=== PATIENT | female | born 1950 | race Hispanic/Latino ===

== ENCOUNTER 2022-08-26 16:02 | Emergency (ER) | payer MEDICARE ==
[~2022-08-26] VITALS: Ht 154.9 cm; Wt 65.8 kg
== END 2022-08-26 17:00 | disposition home or self-care (01) ==
LOC: ER 16:06
DX: N81.3 Complete uterovaginal prolapse (principal); N18.9 Chronic kidney disease, unspecified; D64.9 Anemia, unspecified; Z79.4 Long term (current) use of insulin; Z79.899 Other long term (current) drug therapy
CPT/HCPCS: 99282

== ENCOUNTER 2022-08-31 11:49 | Inpatient (IN) | payer MEDICARE ==
[~2022-08-31] VITALS: Ht 157.5 cm; Wt 59.9 kg
[2022-08-31] MEDS ORDERED: SODIUM CHLORIDE 0.9% 250ML 250 ML IV ONE (13:45)
[2022-08-31] MEDS ORDERED: POLYETHYLENE GLYCOL 3350 17 GM PACK PO PRN (14:00)
[2022-08-31] MEDS ORDERED: ONDANSETRON HCL INJ 2MG/ML 2ML 2 MG/ML VIAL IV PRN (14:00)
[2022-08-31] MEDS ORDERED: AMLODIPINE BESYL5 MG PO (14:03)
[2022-08-31] MEDS ORDERED: LISINOPRIL10 MG PO (14:03)
[2022-08-31] MEDS ORDERED: METHIMAZOLE5 MG PO (14:03)
[2022-08-31] MEDS ORDERED: PROPRANOLOL HCL10 MG PO (14:03)
[2022-08-31] MEDS ORDERED: TRESIBA FL100 UNIT/1 SQ (14:03)
[2022-08-31 14:04] VITALS: BP 170/68
[2022-08-31 14:45] LABS: HEMATOCRIT 20.9 % (34.2-44.1); HEMOGLOBIN 6.1 g/dL (12.0-16.0)
[2022-08-31] MEDS: FAMOTIDINE 20 MG/2 ML VIAL IV SCH (16:04)
[2022-08-31] MEDS: DOCUSATE SODIUM 100 MG CAP PO SCH (16:04)
[2022-08-31] MEDS: METHIMAZOLE 5 MG TAB PO SCH (16:05)
[2022-08-31 16:07] VITALS: BP 163/69
[2022-08-31 17:25] LABS: ANION GAP 16.1 mmol/L (8-16); CREATININE, SERUM 3.29 mg/dL (0.57-1.11); POTASSIUM 4.1 mmol/L (3.5-5.1)
[2022-08-31 17:32] LABS: CALCIUM 6.7 mg/dL (8.4-10.2)
[2022-08-31 21:00] VITALS: BP 163/69
[2022-08-31] MEDS: NON-FORMULARY MEDICATION (Insulin Degludec (Tresiba Flextouch U-100) 15 UNITS) SQ SCH (21:00)
[2022-08-31 21:36] VITALS: BP 168/77
[2022-08-31] MEDS ORDERED: DEXTROSE 50% SYRINGE 50 ML IV PRN (22:45)
[2022-08-31] MEDS: INSULIN REGULAR, HUMAN 100 UNIT/1 ML SQ SCH (23:16)
[2022-08-31 23:28] LABS: FERRITIN 93.31 ng/mL (4.63-204.00)
[2022-08-31] MEDS ORDERED: SODIUM CHLORIDE 0.9% 250ML 250 ML ONE (23:50)
[2022-09-01] VITALS (8 sets, daily range): BP systolic 134–167; BP diastolic 60–71
[2022-09-01 00:27] LABS: CLARITY,URINE CLOUDY (CLEAR); COLOR,URINE YELLOW (YELLOW); KETONES,URINE NEGATIVE (NEGATIVE); LEUKOCYTE ESTERASE ,URINE SMALL (NEGATIVE); NITRITE,URINE NEGATIVE (NEGATIVE); PROTEIN,URINE DIPSTICK >=300 (NEGATIVE); URINE UROBILINOGEN 0.2 mg/dL (0.2 - 1)
[2022-09-01 00:34] LABS: BACTERIA,URINE FEW /HPF; EPITHELIAL CELLS,URINE FEW /LPF; WBC,URINE (MAN) >50 /HPF (0-5)
[2022-09-01 00:58] LABS: CREATININE,URINE RANDOM 20.56 mg/dL (47-110)
[2022-09-01] MEDS ORDERED: CYANOCOBALAMIN INJ 1,000 MCG/ML VIAL IM ONE (02:00)
[2022-09-01] MEDS: HYDRALAZINE HCL 20 MG/ML VIAL IV PRN (03:47)
[2022-09-01] MEDS ORDERED: Morphine 2mg Syringe 2 MG/ML SYR IV PRN (04:30)
[2022-09-01] MEDS: ACETAMINOPHEN 325 MG TAB PO PRN ×3 (04:33→21:36)
[2022-09-01 05:57] LABS: BASOPHILS # (AUTO) 0.1 (0.0-0.1); BASOPHILS % 0.4 % (0.0-1.0); EOSINOPHILS # (AUTO) 0.2 (0.0-0.4); EOSINOPHILS % 1.4 % (0.0-6.0); HEMATOCRIT 26.2 % (34.2-44.1); HEMOGLOBIN 8.2 g/dL (12.0-16.0); LYMPHOCYTES # (AUTO) 1.8 (1.0-3.2); MEAN CORPUSCULAR HEMOGLOBIN 27.2 pg (28-32); MEAN CORPUSCULAR HGB CONC 31.3 g/dL (31-35); MEAN CORPUSCULAR VOLUME 86.8 fL (81-99); MONOCYTES # (AUTO) 1.1 (0.2-0.8); MONOCYTES % 7.8 % (4.4-11.3); NEUTROPHILS # (AUTO) 10.6 (2.1-6.9); NEUTROPHILS % 76.7 % (38.7-80.0); PLATELET COUNT 296 x10e3/uL (140-360); RED BLOOD COUNT 3.02 x10e6/uL (3.6-5.1); RED CELL DISTRIBUTION WIDTH 14.6 % (11.7-14.4)
[2022-09-01 06:31] LABS: ALBUMIN/GLOBULIN RATIO 0.4 (0.8-2.0); ANION GAP 15.3 mmol/L (8-16); CHOL/HDL RATIO 2.8 (3.0-3.6); CREATININE, SERUM 3.33 mg/dL (0.57-1.11); MAGNESIUM 1.4 MG/DL (1.3-2.1); PHOSPHORUS 3.7 MG/DL (2.3-4.7); POTASSIUM 4.3 mmol/L (3.5-5.1)
[2022-09-01 06:32] LABS: CALCIUM 6.4 mg/dL (8.4-10.2)
[2022-09-01 06:44] LABS: THYROID STIMULATING HORMONE 0.006 uIU/mL (0.350-4.940)
[2022-09-01] MEDS: INSULIN REGULAR, HUMAN 100 UNIT/1 ML SQ SCH ×4 (07:30→21:00)
[2022-09-01] MEDS ORDERED: CALCIUM CARBONATE 500 MG CHEWABLE TABS PO SCH (09:00)
[2022-09-01] MEDS: CYANOCOBALAMIN INJ 1,000 MCG/ML VIAL IM SCH (09:56)
[2022-09-01] MEDS: IRON SUCROSE 100 MG in SODIUM CHLORIDE 0.9% 100 ML IV SCH (09:56)
[2022-09-01] MEDS: FAMOTIDINE 20 MG/2 ML VIAL IV SCH ×2 (09:56→17:08)
[2022-09-01] MEDS: SODIUM BICARBONATE 650 MG TAB PO SCH ×2 (09:57→17:08)
[2022-09-01] MEDS: METHIMAZOLE 5 MG TAB PO SCH ×2 (09:58→17:12)
[2022-09-01] MEDS: AMLODIPINE BESYLATE 5 MG TAB PO SCH (09:58)
[2022-09-01] MEDS: DOCUSATE SODIUM 100 MG CAP PO SCH ×2 (09:59→17:12)
[2022-09-01] MEDS ORDERED: MAGNESIUM SULFATE 2GM/50ML 50 ML IV ONE ×2 (16:45→20:00)
[2022-09-01] MEDS: CALCIUM CARBONATE 500 MG CHEWABLE TABS PO SCH ×2 (17:00→21:35)
[2022-09-01] MEDS: SODIUM CHLORIDE 0.9% 1000ML 1,000 ML IV SCH (17:07)
[2022-09-01 17:09] LABS: ABG PCO2 31 mmHg (35-45); ABG PH 7.41 (7.35-7.45); ABG PO2 78 mmHg (80-105); ABG TCO2 21
[2022-09-01 17:10] LABS: ABG HCO3 20 mmol/L (22-26)
[2022-09-01] MEDS: NON-FORMULARY MEDICATION (Insulin Degludec (Tresiba Flextouch U-100) 15 UNITS) SQ SCH (21:00)
[2022-09-02] VITALS (8 sets, daily range): BP systolic 146–170; BP diastolic 64–77
[2022-09-02] MEDS: HYDRALAZINE HCL 20 MG/ML VIAL IV PRN ×2 (05:20→20:30)
[2022-09-02 06:24] LABS: ANION GAP 16.1 mmol/L (8-16); CREATININE, SERUM 4.02 mg/dL (0.57-1.11); MAGNESIUM 2.7 MG/DL (1.3-2.1); POTASSIUM 4.1 mmol/L (3.5-5.1)
[2022-09-02 06:35] LABS: CALCIUM 6.9 mg/dL (8.4-10.2)
[2022-09-02] MEDS: INSULIN REGULAR, HUMAN 100 UNIT/1 ML SQ SCH ×4 (09:04→20:33)
[2022-09-02] MEDS: IRON SUCROSE 100 MG in SODIUM CHLORIDE 0.9% 100 ML IV SCH (09:23)
[2022-09-02] MEDS: METHIMAZOLE 5 MG TAB PO SCH ×2 (09:25→17:00)
[2022-09-02] MEDS: SODIUM BICARBONATE 650 MG TAB PO SCH ×2 (09:26→17:00)
[2022-09-02] MEDS: CALCIUM CARBONATE 500 MG CHEWABLE TABS PO SCH ×3 (09:26→20:30)
[2022-09-02] MEDS: DOCUSATE SODIUM 100 MG CAP PO SCH ×2 (09:26→17:00)
[2022-09-02] MEDS: FAMOTIDINE 20 MG/2 ML VIAL IV SCH ×2 (09:26→17:00)
[2022-09-02] MEDS: AMLODIPINE BESYLATE 5 MG TAB PO SCH (09:26)
[2022-09-02] MEDS: CYANOCOBALAMIN INJ 1,000 MCG/ML VIAL IM SCH (09:26)
[2022-09-02] MEDS ORDERED: MIDAZOLAM HCL 2 MG/2 ML VIAL ONE (13:32)
[2022-09-02] MEDS: SODIUM CHLORIDE 0.9% 1000ML 1,000 ML IV SCH (18:55)
[2022-09-02] MEDS: NON-FORMULARY MEDICATION (Insulin Degludec (Tresiba Flextouch U-100) 15 UNITS) SQ SCH (20:33)
[2022-09-03] VITALS (7 sets, daily range): BP systolic 139–171; BP diastolic 60–80
[2022-09-03] MEDS: SODIUM CHLORIDE 0.9% 1000ML 1,000 ML IV SCH ×3 (03:27→18:36)
[2022-09-03 07:22] LABS: CALCIUM 7.3 mg/dL (8.4-10.2); CREATININE, SERUM 3.89 mg/dL (0.57-1.11)
[2022-09-03] MEDS: INSULIN REGULAR, HUMAN 100 UNIT/1 ML SQ SCH ×4 (07:30→21:00)
[2022-09-03] MEDS: IRON SUCROSE 100 MG in SODIUM CHLORIDE 0.9% 100 ML IV SCH (09:48)
[2022-09-03] MEDS: AMLODIPINE BESYLATE 5 MG TAB PO SCH (09:49)
[2022-09-03] MEDS: METHIMAZOLE 5 MG TAB PO SCH ×2 (09:49→17:22)
[2022-09-03] MEDS: CALCIUM CARBONATE 500 MG CHEWABLE TABS PO SCH ×3 (09:49→21:04)
[2022-09-03] MEDS: DOCUSATE SODIUM 100 MG CAP PO SCH ×2 (09:49→17:22)
[2022-09-03] MEDS: CYANOCOBALAMIN INJ 1,000 MCG/ML VIAL IM SCH (09:50)
[2022-09-03] MEDS: SODIUM BICARBONATE 650 MG TAB PO SCH ×2 (09:50→17:21)
[2022-09-03] MEDS: FAMOTIDINE 20 MG/2 ML VIAL IV SCH ×2 (09:50→17:21)
[2022-09-03] MEDS: NON-FORMULARY MEDICATION (Insulin Degludec (Tresiba Flextouch U-100) 15 UNITS) SQ SCH (21:00)
[2022-09-03] MEDS: HYDRALAZINE HCL 20 MG/ML VIAL IV PRN (21:06)
[2022-09-04] VITALS (7 sets, daily range): BP systolic 142–152; BP diastolic 57–67
[2022-09-04] MEDS: HYDRALAZINE HCL 20 MG/ML VIAL IV PRN (05:41)
[2022-09-04 05:42] LABS: BASOPHILS # (AUTO) 0.1 (0.0-0.1); BASOPHILS % 0.4 % (0.0-1.0); EOSINOPHILS # (AUTO) 0.2 (0.0-0.4); EOSINOPHILS % 1.3 % (0.0-6.0); HEMATOCRIT 27.3 % (34.2-44.1); HEMOGLOBIN 8.4 g/dL (12.0-16.0); LYMPHOCYTES # (AUTO) 2.3 (1.0-3.2); LYMPHOCYTES % 16.3 % (18.0-39.1); MEAN CORPUSCULAR HEMOGLOBIN 27.1 pg (28-32); MEAN CORPUSCULAR HGB CONC 30.8 g/dL (31-35); MEAN CORPUSCULAR VOLUME 88.1 fL (81-99); MONOCYTES # (AUTO) 1.2 (0.2-0.8); MONOCYTES % 8.4 % (4.4-11.3); NEUTROPHILS % 72.5 % (38.7-80.0); PLATELET COUNT 338 x10e3/uL (140-360); RED CELL DISTRIBUTION WIDTH 15.2 % (11.7-14.4)
[2022-09-04] MEDS: SODIUM CHLORIDE 0.9% 1000ML 1,000 ML IV SCH ×2 (05:49→21:17)
[2022-09-04 06:11] LABS: ANION GAP 14.8 mmol/L (8-16); CALCIUM 7.4 mg/dL (8.4-10.2); CREATININE, SERUM 3.91 mg/dL (0.57-1.11); POTASSIUM 3.8 mmol/L (3.5-5.1)
[2022-09-04] MEDS: INSULIN REGULAR, HUMAN 100 UNIT/1 ML SQ SCH ×4 (07:30→21:00)
[2022-09-04] MEDS: IRON SUCROSE 100 MG in SODIUM CHLORIDE 0.9% 100 ML IV SCH (09:32)
[2022-09-04] MEDS: CALCIUM CARBONATE 500 MG CHEWABLE TABS PO SCH ×3 (09:32→21:18)
[2022-09-04] MEDS: AMLODIPINE BESYLATE 5 MG TAB PO SCH (09:32)
[2022-09-04] MEDS: SODIUM BICARBONATE 650 MG TAB PO SCH ×2 (09:32→16:57)
[2022-09-04] MEDS: FAMOTIDINE 20 MG/2 ML VIAL IV SCH ×2 (09:33→16:57)
[2022-09-04] MEDS: METHIMAZOLE 5 MG TAB PO SCH ×2 (09:33→16:56)
[2022-09-04] MEDS: DOCUSATE SODIUM 100 MG CAP PO SCH ×2 (09:33→16:56)
[2022-09-04] MEDS: CYANOCOBALAMIN INJ 1,000 MCG/ML VIAL IM SCH (09:33)
[2022-09-04] MEDS ORDERED: AMPICILLIN TRIHYDRATE 500MG CAPSULE PO SCH (14:00)
[2022-09-04] MEDS: AMPICILLIN TRIHYDRATE 500MG CAPSULE PO SCH ×2 (14:06→21:19)
[2022-09-04] MEDS: NON-FORMULARY MEDICATION (Insulin Degludec (Tresiba Flextouch U-100) 15 UNITS) SQ SCH (21:00)
[2022-09-05] VITALS (7 sets, daily range): BP systolic 149–171; BP diastolic 67–82
[2022-09-05] MEDS: AMPICILLIN TRIHYDRATE 500MG CAPSULE PO SCH ×3 (05:06→20:55)
[2022-09-05 05:28] LABS: BASOPHILS # (AUTO) 0.1 (0.0-0.1); BASOPHILS % 0.5 % (0.0-1.0); EOSINOPHILS # (AUTO) 0.1 (0.0-0.4); EOSINOPHILS % 0.4 % (0.0-6.0); HEMATOCRIT 25.7 % (34.2-44.1); HEMOGLOBIN 8.1 g/dL (12.0-16.0); LYMPHOCYTES # (AUTO) 2.7 (1.0-3.2); LYMPHOCYTES % 19.6 % (18.0-39.1); MEAN CORPUSCULAR HEMOGLOBIN 27.6 pg (28-32); MEAN CORPUSCULAR HGB CONC 31.5 g/dL (31-35); MEAN CORPUSCULAR VOLUME 87.4 fL (81-99); MONOCYTES # (AUTO) 1.1 (0.2-0.8); NEUTROPHILS # (AUTO) 9.6 (2.1-6.9); NEUTROPHILS % 70.7 % (38.7-80.0); PLATELET COUNT 326 x10e3/uL (140-360); RED BLOOD COUNT 2.94 x10e6/uL (3.6-5.1); RED CELL DISTRIBUTION WIDTH 15.3 % (11.7-14.4)
[2022-09-05 06:10] LABS: ANION GAP 12.4 mmol/L (8-16); CALCIUM 7.1 mg/dL (8.4-10.2); CREATININE, SERUM 3.59 mg/dL (0.57-1.11); POTASSIUM 3.4 mmol/L (3.5-5.1)
[2022-09-05] MEDS: INSULIN REGULAR, HUMAN 100 UNIT/1 ML SQ SCH ×4 (07:30→20:55)
[2022-09-05] MEDS: FAMOTIDINE 20 MG/2 ML VIAL IV SCH ×2 (09:35→16:37)
[2022-09-05] MEDS: SODIUM CHLORIDE 0.9% 1000ML 1,000 ML IV SCH ×2 (09:35→23:15)
[2022-09-05] MEDS: DOCUSATE SODIUM 100 MG CAP PO SCH ×2 (09:35→16:36)
[2022-09-05] MEDS: SODIUM BICARBONATE 650 MG TAB PO SCH ×2 (09:36→16:37)
[2022-09-05] MEDS: AMLODIPINE BESYLATE 5 MG TAB PO SCH (09:36)
[2022-09-05] MEDS: CALCIUM CARBONATE 500 MG CHEWABLE TABS PO SCH ×3 (09:36→20:55)
[2022-09-05] MEDS: METHIMAZOLE 5 MG TAB PO SCH ×2 (09:36→16:36)
[2022-09-05] MEDS: IRON SUCROSE 100 MG in SODIUM CHLORIDE 0.9% 100 ML IV SCH (09:38)
[2022-09-05] MEDS: CYANOCOBALAMIN INJ 1,000 MCG/ML VIAL IM SCH (09:46)
[2022-09-05] MEDS ORDERED: ONDANSETRON HCL 4 MG ORAL DISINTEGRATING TAB PO PRN (10:45)
[2022-09-05] MEDS ORDERED: POTASSIUM CHLORIDE 20 MEQ TAB CR PO ONE (19:15)
[2022-09-05] MEDS: NON-FORMULARY MEDICATION (Insulin Degludec (Tresiba Flextouch U-100) 15 UNITS) SQ SCH (20:55)
[2022-09-06] VITALS (8 sets, daily range): BP systolic 152–167; BP diastolic 61–76
[2022-09-06 05:56] LABS: ANION GAP 11.8 mmol/L (8-16); CREATININE, SERUM 3.32 mg/dL (0.57-1.11); POTASSIUM 3.8 mmol/L (3.5-5.1)
[2022-09-06] MEDS: AMPICILLIN TRIHYDRATE 500MG CAPSULE PO SCH ×3 (06:14→21:18)
[2022-09-06] MEDS: INSULIN REGULAR, HUMAN 100 UNIT/1 ML SQ SCH ×4 (07:30→21:00)
[2022-09-06] MEDS: AMLODIPINE BESYLATE 5 MG TAB PO SCH (10:03)
[2022-09-06] MEDS: METHIMAZOLE 5 MG TAB PO SCH ×2 (10:03→16:26)
[2022-09-06] MEDS: DOCUSATE SODIUM 100 MG CAP PO SCH ×2 (10:03→16:26)
[2022-09-06] MEDS: CYANOCOBALAMIN INJ 1,000 MCG/ML VIAL IM SCH (10:04)
[2022-09-06] MEDS: CALCIUM CARBONATE 500 MG CHEWABLE TABS PO SCH ×3 (10:04→21:19)
[2022-09-06] MEDS: FAMOTIDINE 20 MG/2 ML VIAL IV SCH ×2 (10:04→16:26)
[2022-09-06] MEDS: SODIUM CHLORIDE 0.9% 1000ML 1,000 ML IV SCH (11:47)
[2022-09-06] MEDS: NON-FORMULARY MEDICATION (Insulin Degludec (Tresiba Flextouch U-100) 15 UNITS) SQ SCH (21:00)
[2022-09-07 00:40] VITALS: BP 169/75
[2022-09-07] MEDS: SODIUM CHLORIDE 0.9% 1000ML 1,000 ML IV SCH (04:50)
[2022-09-07 05:00] VITALS: BP 174/75
[2022-09-07 06:01] LABS: BASOPHILS # (AUTO) 0.1 (0.0-0.1); BASOPHILS % 0.6 % (0.0-1.0); EOSINOPHILS # (AUTO) 0.3 (0.0-0.4); EOSINOPHILS % 2.4 % (0.0-6.0); HEMATOCRIT 26.3 % (34.2-44.1); HEMOGLOBIN 8.1 g/dL (12.0-16.0); LYMPHOCYTES # (AUTO) 2.6 (1.0-3.2); LYMPHOCYTES % 23.6 % (18.0-39.1); MEAN CORPUSCULAR HEMOGLOBIN 27.2 pg (28-32); MEAN CORPUSCULAR HGB CONC 30.8 g/dL (31-35); MEAN CORPUSCULAR VOLUME 88.3 fL (81-99); MONOCYTES # (AUTO) 1.1 (0.2-0.8); NEUTROPHILS # (AUTO) 6.9 (2.1-6.9); NEUTROPHILS % 62.5 % (38.7-80.0); PLATELET COUNT 329 x10e3/uL (140-360); RED BLOOD COUNT 2.98 x10e6/uL (3.6-5.1); RED CELL DISTRIBUTION WIDTH 15.8 % (11.7-14.4)
[2022-09-07] MEDS: AMPICILLIN TRIHYDRATE 500MG CAPSULE PO SCH ×2 (06:09→15:16)
[2022-09-07 06:22] LABS: ANION GAP 13.6 mmol/L (8-16); CALCIUM 7.4 mg/dL (8.4-10.2); CREATININE, SERUM 3.25 mg/dL (0.57-1.11); POTASSIUM 3.6 mmol/L (3.5-5.1)
[2022-09-07] MEDS: INSULIN REGULAR, HUMAN 100 UNIT/1 ML SQ SCH ×2 (07:30→11:30)
[2022-09-07 08:00] VITALS: BP 174/75
[2022-09-07] MEDS ORDERED: IRON-VITAMIN-MINERAL CAPSULE PO SCH (09:00)
[2022-09-07 09:10] VITALS: BP 159/57
[2022-09-07] MEDS: AMLODIPINE BESYLATE 5 MG TAB PO SCH (09:28)
[2022-09-07] MEDS: METHIMAZOLE 5 MG TAB PO SCH (09:28)
[2022-09-07] MEDS: CALCIUM CARBONATE 500 MG CHEWABLE TABS PO SCH ×2 (09:28→15:16)
[2022-09-07] MEDS: FAMOTIDINE 20 MG/2 ML VIAL IV SCH (09:28)
[2022-09-07] MEDS: DOCUSATE SODIUM 100 MG CAP PO SCH (09:29)
[2022-09-07] MEDS: CYANOCOBALAMIN INJ 1,000 MCG/ML VIAL IM SCH (09:29)
[2022-09-07 12:26] VITALS: BP 177/88
[2022-09-07] MEDS ORDERED: Docusate Sodium PO (13:07)
[2022-09-07] MEDS ORDERED: FAMOTIDINE20 MG PO (13:24)
[2022-09-07] MEDS ORDERED: FEROCON CAPSUL1 EACH PO (13:42)
[2022-09-07] MEDS ORDERED: ONDANSETRON ODT4 MG PO (13:42)
[2022-09-07] MEDS ORDERED: MIRALAX17 GM PO (13:42)
[2022-09-07] MEDS ORDERED: AMPICILLIN TRI500 MG PO (13:42)
[2022-09-07] MEDS ORDERED: FAMOTIDINE 20 MG TAB PO SCH (16:30)
== END 2022-09-07 15:30 | disposition home or self-care (01) | DRG 377 ==
LOC: MED/SURG2 12:36 → OBSVTOIN 13:51
PROVIDERS: ADMIT Internal Medicine; ATTEND Internal Medicine
PROC: 30233N1 Transfusion of Nonautologous Red Blood Cells into Peripheral Vein, Percutaneous Approach (ICD-10-PCS; 2022-09-01)
PROC: 0DB78ZX Excision of Stomach, Pylorus, Via Natural or Artificial Opening Endoscopic, Diagnostic (ICD-10-PCS; 2022-09-02)
PROC: 0DB68ZX Excision of Stomach, Via Natural or Artificial Opening Endoscopic, Diagnostic (ICD-10-PCS; principal; 2022-09-02 17:48)
DX: K29.01 Acute gastritis with bleeding (principal); E05.91 Thyrotoxicosis, unspecified with thyrotoxic crisis or storm; N17.9 Acute kidney failure, unspecified; N13.8 Other obstructive and reflux uropathy; E87.4 Mixed disorder of acid-base balance; N18.4 Chronic kidney disease, stage 4 (severe); D50.9 Iron deficiency anemia, unspecified; N81.3 Complete uterovaginal prolapse; E11.22 Type 2 diabetes mellitus with diabetic chronic kidney disease; I12.9 Hypertensive chronic kidney disease with stage 1 through stage 4 chronic kidney disease, or unspecified chronic kidney disease; Z79.4 Long term (current) use of insulin; K44.9 Diaphragmatic hernia without obstruction or gangrene; Z66 Do not resuscitate; E11.69 Type 2 diabetes mellitus with other specified complication; E78.5 Hyperlipidemia, unspecified; D50.0 Iron deficiency anemia secondary to blood loss (chronic); K25.9 Gastric ulcer, unspecified as acute or chronic, without hemorrhage or perforation; Z20.822 Contact with and (suspected) exposure to COVID-19; E87.6 Hypokalemia
CPT/HCPCS: 36415; 36600; 43239; 76770; 80048; 80053; 80061; 81001; 82550; 82570; 82607; 82728; 82746; 82805; 82948; 83036; 83540; 83735; 84100; 84156; 84300; 84443; 84466; 84550; 85014; 85018; 85025; 85045; 86850; 86900; 86920; 87086; 88304; 88305; 88312; 88342; 96361; 96372; 99252; J1756; J2250; J2405; J3420; J3475; J7030; J7050; J7799; P9016

== ENCOUNTER 2022-11-09 15:10 | Inpatient (IN) | payer MEDICARE ==
[~2022-11-09] VITALS: Ht 154.9 cm; Wt 54.0 kg
[~2022-11-09 15:10] MED LIST: AMLODIPINE BESYL5 MG PO; AMPICILLIN TRI500 MG PO; Docusate Sodium PO; FAMOTIDINE20 MG PO; FEROCON CAPSUL1 EACH PO; LISINOPRIL10 MG PO; METHIMAZOLE5 MG PO; MIRALAX17 GM PO; ONDANSETRON ODT4 MG PO; PROPRANOLOL HCL10 MG PO; TRESIBA FL100 UNIT/1 SQ
[2022-11-09] MEDS ORDERED: ONDANSETRON HCL INJ 2MG/ML 2ML 2 MG/ML VIAL IV PRN (16:30)
[2022-11-09 17:06] LABS: BASOPHILS # (AUTO) 0.1 (0.0-0.1); BASOPHILS % 0.7 % (0.0-1.0); EOSINOPHILS # (AUTO) 0.3 (0.0-0.4); EOSINOPHILS % 2.5 % (0.0-6.0); HEMATOCRIT 30.9 % (34.2-44.1); HEMOGLOBIN 9.8 g/dL (12.0-16.0); LYMPHOCYTES # (AUTO) 1.7 (1.0-3.2); MEAN CORPUSCULAR HEMOGLOBIN 29.7 pg (28-32); MEAN CORPUSCULAR HGB CONC 31.7 g/dL (31-35); MEAN CORPUSCULAR VOLUME 93.6 fL (81-99); MONOCYTES # (AUTO) 0.8 (0.2-0.8); MONOCYTES % 7.7 % (4.4-11.3); NEUTROPHILS # (AUTO) 7.5 (2.1-6.9); NEUTROPHILS % 72.8 % (38.7-80.0); PLATELET COUNT 281 x10e3/uL (140-360)
[2022-11-09 17:24] LABS: ALANINE AMINOTRANSFERASE 12 IU/L (0-55); ALBUMIN/GLOBULIN RATIO 0.5 (0.8-2.0); ALKALINE PHOSPHATASE 281 IU/L (40-150); ANION GAP 19.4 mmol/L (8-16); BLOOD UREA NITROGEN 56 mg/dL (7-26); BUN/CREATININE RATIO 13 (6-25); CARBON DIOXIDE 15 mmol/L (22-29); CHLORIDE 108 mmol/L (98-107); CREATININE, SERUM 4.35 mg/dL (0.57-1.11); GLUCOSE 157 mg/dL (74-118); SODIUM 137 mmol/L (136-145)
[2022-11-09 17:26] LABS: POTASSIUM 5.4 mmol/L (3.5-5.1)
[2022-11-09 17:27] LABS: CALCIUM 6.3 mg/dL (8.4-10.2)
[2022-11-09] MEDS ORDERED: CALCIUM GLUC 1 G/50 ML NACL 50 ML IV ONE (17:45)
[2022-11-09] MEDS ORDERED: SODIUM CHLORIDE 0.9% 1000ML 1,000 ML IV SCH (18:00)
[2022-11-09] MEDS ORDERED: SOD POLYSTYRENE SULFONATE SUSP 15 GM/60 ML BTL PO ONE (18:00)
[2022-11-09 19:33] LABS: CLARITY,URINE CLEAR (CLEAR); COLOR,URINE YELLOW (YELLOW); KETONES,URINE NEGATIVE (NEGATIVE); LEUKOCYTE ESTERASE ,URINE NEGATIVE (NEGATIVE); NITRITE,URINE NEGATIVE (NEGATIVE); PROTEIN,URINE DIPSTICK >=300 (NEGATIVE); URINE UROBILINOGEN 0.2 mg/dL (0.2 - 1)
[2022-11-09 19:43] LABS: BACTERIA,URINE MODERATE /HPF; EPITHELIAL CELLS,URINE FEW /LPF; RBC,URINE 0-5 /HPF (0-5)
[2022-11-09 20:10] VITALS: BP 170/78; PULSE 80; RESP 20; TEMP 98.6; O2SAT 100
[2022-11-09 20:15] VITALS: BP 170/78; PULSE 80; RESP 20; TEMP 98.6; O2SAT 100
[2022-11-09 20:20] VITALS: BP 170/78; PULSE 80; RESP 20; TEMP 98.6; O2SAT 100
[2022-11-09] MEDS ORDERED: FUROSEMIDE40 MG PO (21:15)
[2022-11-09] MEDS ORDERED: BASAGLAR K100 UNIT/1 SQ (21:15)
[2022-11-09] MEDS: CALCIUM CARBONATE 500 MG CHEWABLE TABS PO SCH (21:18)
[2022-11-10] VITALS (8 sets, daily range): BP systolic 142–157; BP diastolic 69–78; PULSE 67–79; RESP 18–20; TEMP 98–98.7; O2SAT 97–100
[2022-11-10] MEDS ORDERED: DEXTROSE 50% SYRINGE 50 ML IV PRN (04:30)
[2022-11-10 05:32] LABS: BASOPHILS # (AUTO) 0.1 (0.0-0.1); BASOPHILS % 1.4 % (0.0-1.0); EOSINOPHILS # (AUTO) 0.3 (0.0-0.4); HEMATOCRIT 27.4 % (34.2-44.1); HEMOGLOBIN 8.6 g/dL (12.0-16.0); LYMPHOCYTES # (AUTO) 1.7 (1.0-3.2); LYMPHOCYTES % 26.2 % (18.0-39.1); MEAN CORPUSCULAR HEMOGLOBIN 29.5 pg (28-32); MEAN CORPUSCULAR HGB CONC 31.4 g/dL (31-35); MEAN CORPUSCULAR VOLUME 93.8 fL (81-99); MONOCYTES # (AUTO) 0.7 (0.2-0.8); MONOCYTES % 10.5 % (4.4-11.3); NEUTROPHILS # (AUTO) 3.8 (2.1-6.9); NEUTROPHILS % 57.6 % (38.7-80.0); PLATELET COUNT 270 x10e3/uL (140-360); RED BLOOD COUNT 2.92 x10e6/uL (3.6-5.1); RED CELL DISTRIBUTION WIDTH 16.6 % (11.7-14.4)
[2022-11-10 05:55] LABS: ANION GAP 15.9 mmol/L (8-16); POTASSIUM 3.9 mmol/L (3.5-5.1)
[2022-11-10 05:58] LABS: CALCIUM 6.4 mg/dL (8.4-10.2)
[2022-11-10] MEDS: INSULIN REGULAR, HUMAN 100 UNIT/1 ML SQ SCH ×4 (07:30→21:08)
[2022-11-10] MEDS: CALCIUM CARBONATE 500 MG CHEWABLE TABS PO SCH ×3 (09:01→21:07)
[2022-11-10] MEDS ORDERED: SODIUM CHLORIDE 0.9% 1000ML 1,000 ML IV ONE (09:15)
[2022-11-10] MEDS: AMLODIPINE BESYLATE 5 MG TAB PO SCH (12:30)
[2022-11-10] MEDS: METHIMAZOLE 5 MG TAB PO SCH (17:42)
[2022-11-10] MEDS: PROPRANOLOL HCL 10 MG TAB PO SCH (17:42)
[2022-11-10] MEDS ORDERED: LACTATED RINGER'S 1,000 ML INJ ONE (18:00)
[2022-11-10] MEDS: SODIUM BICARBONATE 650 MG TAB PO SCH (18:24)
[2022-11-10] MEDS ORDERED: INSULIN GLARGINE 100 UNITS/ML VIAL SQ SCH (21:00)
[2022-11-11] VITALS: BP 158/67; PULSE 60; RESP 18; TEMP 98; O2SAT 95
[2022-11-11 04:00] VITALS: BP 148/71; PULSE 81; RESP 18; TEMP 98.6; O2SAT 100
[2022-11-11 06:32] LABS: ANION GAP 14.9 mmol/L (8-16); CREATININE, SERUM 3.35 mg/dL (0.57-1.11); PHOSPHORUS 3.8 MG/DL (2.3-4.7); POTASSIUM 3.9 mmol/L (3.5-5.1)
[2022-11-11 06:44] LABS: CALCIUM 6.6 mg/dL (8.4-10.2); MAGNESIUM 1.1 MG/DL (1.3-2.1)
[2022-11-11] MEDS: INSULIN REGULAR, HUMAN 100 UNIT/1 ML SQ SCH ×3 (07:30→16:30)
[2022-11-11 08:55] VITALS: BP 143/69; PULSE 78; RESP 17; TEMP 97.9; O2SAT 99
[2022-11-11] MEDS: SODIUM BICARBONATE 650 MG TAB PO SCH ×2 (09:01→18:09)
[2022-11-11] MEDS: METHIMAZOLE 5 MG TAB PO SCH ×2 (09:01→18:09)
[2022-11-11] MEDS: PROPRANOLOL HCL 10 MG TAB PO SCH ×2 (09:02→18:10)
[2022-11-11] MEDS: CALCIUM CARBONATE 500 MG CHEWABLE TABS PO SCH ×2 (09:02→15:42)
[2022-11-11] MEDS: AMLODIPINE BESYLATE 5 MG TAB PO SCH (09:03)
[2022-11-11 09:19] VITALS: BP 143/69; PULSE 78; RESP 17; TEMP 97.9; O2SAT 99
[2022-11-11] MEDS: MAGNESIUM SULFATE 2GM/50ML 50 ML IV SCH ×2 (09:32→11:30)
[2022-11-11 13:05] VITALS: BP 153/68; PULSE 75; RESP 17; TEMP 97.7; O2SAT 97
[2022-11-11] MEDS ORDERED: ONDANSETRON HCL 4 MG ORAL DISINTEGRATING TAB PO PRN (13:15)
[2022-11-11 16:00] LABS: CREATININE,URINE RANDOM 26.42 mg/dL (47-110)
[2022-11-11] MEDS ORDERED: Calcium Carbonate 500MG Chew PO (18:49)
[2022-11-11] MEDS ORDERED: SODIUM BICARBO650 MG PO (18:49)
[2022-11-11 20:00] VITALS: BP 162/63; PULSE 57; RESP 16; TEMP 98.6; O2SAT 100
[2022-11-15 16:11] LABS: ALPHA 2 GLOBULIN URINE PEP 7.1 % (.)
== END 2022-11-11 21:00 | disposition home or self-care (01) | DRG 683 ==
LOC: ER 15:15 → ERHOLD 16:24 → MED/SURG 19:53
PROVIDERS: ADMIT Internal Medicine; ATTEND Internal Medicine
DX: N17.9 Acute kidney failure, unspecified (principal); E87.20 Acidosis, unspecified; E87.5 Hyperkalemia; I12.9 Hypertensive chronic kidney disease with stage 1 through stage 4 chronic kidney disease, or unspecified chronic kidney disease; E11.22 Type 2 diabetes mellitus with diabetic chronic kidney disease; E83.51 Hypocalcemia; E78.5 Hyperlipidemia, unspecified; N18.4 Chronic kidney disease, stage 4 (severe); E03.9 Hypothyroidism, unspecified; E11.65 Type 2 diabetes mellitus with hyperglycemia; N13.30 Unspecified hydronephrosis; E88.09 Other disorders of plasma-protein metabolism, not elsewhere classified; K80.20 Calculus of gallbladder without cholecystitis without obstruction; D64.9 Anemia, unspecified; Z79.4 Long term (current) use of insulin; Z79.899 Other long term (current) drug therapy; Z82.49 Family history of ischemic heart disease and other diseases of the circulatory system
CPT/HCPCS: 0223U; 36415; 74176; 76770; 80048; 80053; 81001; 81050; 82570; 82948; 83735; 84100; 84156; 84165; 84166; 85025; 86021; 86039; 86160; 86225; 93005; 93976; 99284; J3475; J7030

== ENCOUNTER 2024-02-05 18:40 | Inpatient (IN) | payer MEDICARE ==
[~2024-02-05] VITALS: Ht 154.9 cm; Wt 54.0 kg
[~2024-02-05 18:40] MED LIST changes: +BASAGLAR K100 UNIT/1 SQ; +Calcium Carbonate 500MG Chew PO; +FUROSEMIDE40 MG PO; +SODIUM BICARBO650 MG PO
[2024-02-05 19:24] VITALS: TEMP 98.4
[2024-02-05 19:40] LABS: BASOPHILS # (AUTO) 0.1 (0.0-0.1); BASOPHILS % 0.4 % (0.0-1.0); EOSINOPHILS % 0.1 % (0.0-6.0); LYMPHOCYTES # (AUTO) 1.1 (1.0-3.2); LYMPHOCYTES % 7.2 % (18.0-39.1); MEAN CORPUSCULAR HEMOGLOBIN 30.5 pg (28-32); MEAN CORPUSCULAR HGB CONC 30.6 g/dL (31-35); MEAN CORPUSCULAR VOLUME 99.5 fL (81-99); MONOCYTES # (AUTO) 0.7 (0.2-0.8); MONOCYTES % 4.5 % (4.4-11.3); NEUTROPHILS # (AUTO) 13.2 (2.1-6.9); NEUTROPHILS % 87.1 % (38.7-80.0); PLATELET COUNT 224 x10e3/uL (140-360); RED BLOOD COUNT 1.87 x10e6/uL (3.6-5.1); RED CELL DISTRIBUTION WIDTH 14.7 % (11.7-14.4)
[2024-02-05 19:44] LABS: HEMATOCRIT 18.6 % (34.2-44.1); HEMOGLOBIN 5.7 g/dL (12.0-16.0)
[2024-02-05] MEDS ORDERED: SODIUM CHLORIDE FLUSH 10 ML SYR INJ PRN ×2 (19:45→21:00)
[2024-02-05 20:03] LABS: TROPONIN I < 0.05 ng/mL (0.0-0.40)
[2024-02-05 20:07] LABS: ALANINE AMINOTRANSFERASE 7 IU/L (0-55); ALBUMIN 2.9 g/dL (3.5-5.0); ALBUMIN/GLOBULIN RATIO 0.7 (0.8-2.0); ALKALINE PHOSPHATASE 91 IU/L (40-150); ANION GAP 24.2 mmol/L (8-16); BILIRUBIN,TOTAL 0.6 mg/dL (0.2-1.2); CALCIUM 7.1 mg/dL (8.4-10.2); CHLORIDE 110 mmol/L (98-107); CREATINE KINASE 20 IU/L (29-168); CREATININE, SERUM 11.51 mg/dL (0.57-1.11); EST GLOMERULAR FILTRATION RATE 3 ML/MIN (>=60); GLUCOSE 175 mg/dL (74-118); SODIUM 137 mmol/L (136-145); TOTAL PROTEIN 7.3 g/dL (6.5-8.1)
[2024-02-05 20:10] LABS: CARBON DIOXIDE 8 mmol/L (22-29); POTASSIUM 5.2 mmol/L (3.5-5.1)
[2024-02-05 20:34] LABS: BLOOD UREA NITROGEN 160 mg/dL (7-26)
[2024-02-05 20:42] LABS: BILIRUBIN,URINE NEGATIVE (NEGATIVE); CLARITY,URINE SL CLOUDY (CLEAR); COLOR,URINE YELLOW (YELLOW); GLUCOSE, URINE NEGATIVE (NEGATIVE); KETONES,URINE NEGATIVE (NEGATIVE); LEUKOCYTE ESTERASE ,URINE SMALL (NEGATIVE); NITRITE,URINE NEGATIVE (NEGATIVE); PH,URINE 5.5 (5 - 7); PROTEIN,URINE DIPSTICK 2+ (NEGATIVE); URINE UROBILINOGEN 0.2 mg/dL (0.2 - 1)
[2024-02-05 20:53] LABS: AMORPHOUS SEDIMENT,URINE MODERATE (FEW); BACTERIA,URINE FEW /HPF; TRANSITIONAL EPI CELLS,URINE FEW; WBC,URINE (MAN) >50 /HPF (0-5)
[2024-02-05] MEDS: INSULIN REGULAR, HUMAN 100 UNIT/1 ML SQ SCH (21:00)
[2024-02-05] MEDS ORDERED: DEXTROSE 50% SYRINGE 50 ML IV PRN (21:00)
[2024-02-05 21:14] LABS: ABG HCO3 8 mmol/L (22-26); ABG PCO2 19 mmHg (35-45); ABG PH 7.24 (7.35-7.45); ABG PO2 100 mmHg (80-105); ABG TCO2 9
[2024-02-05 21:16] VITALS: PULSE 52; RESP 16; O2SAT 97
[2024-02-05] MEDS: FUROSEMIDE INJ 10 MG/ML 2 ML VIAL IV ONE (21:35)
[2024-02-05] MEDS: SODIUM BICARBONATE 8.4% INJ 50 ML SYR IV STA (21:36)
[2024-02-05 21:45] VITALS: PULSE 60; RESP 17
[2024-02-05 22:40] VITALS: BP 106/46; PULSE 63; RESP 18; TEMP 98.1; O2SAT 100
[2024-02-05] MEDS: SODIUM CHLORIDE 0.9% 250ML 250 ML IV ONE (22:58)
[2024-02-05] MEDS ORDERED: CARVEDILOL12.5 MG PO (23:10)
[2024-02-05] MEDS ORDERED: PNEUMOCOCCAL VACCINE POLYVALENT 23 MCG/0.5 ML VIAL IM SCH (23:19)
[2024-02-06] VITALS (7 sets, daily range): BP systolic 109–130; BP diastolic 47–58; PULSE 56–81; RESP 16–18; TEMP 97.5–98.8; O2SAT 98–100
[2024-02-06] MEDS: FUROSEMIDE INJ 10 MG/ML 2 ML VIAL IV SCH (01:23)
[2024-02-06 05:35] LABS: BASOPHILS % 0.2 % (0.0-1.0); EOSINOPHILS % 0.2 % (0.0-6.0); HEMATOCRIT 24.3 % (34.2-44.1); HEMOGLOBIN 7.6 g/dL (12.0-16.0); LYMPHOCYTES # (AUTO) 0.9 (1.0-3.2); LYMPHOCYTES % 6.1 % (18.0-39.1); MEAN CORPUSCULAR HEMOGLOBIN 30.5 pg (28-32); MEAN CORPUSCULAR HGB CONC 31.3 g/dL (31-35); MEAN CORPUSCULAR VOLUME 97.6 fL (81-99); MONOCYTES # (AUTO) 0.9 (0.2-0.8); MONOCYTES % 6.1 % (4.4-11.3); NEUTROPHILS # (AUTO) 12.2 (2.1-6.9); NEUTROPHILS % 86.7 % (38.7-80.0); PLATELET COUNT 211 x10e3/uL (140-360); RED BLOOD COUNT 2.49 x10e6/uL (3.6-5.1); RED CELL DISTRIBUTION WIDTH 14.4 % (11.7-14.4); WHITE BLOOD COUNT 14.02 x10e3/uL (4.8-10.8)
[2024-02-06 06:09] LABS: ALANINE AMINOTRANSFERASE 7 IU/L (0-55); ALBUMIN 2.6 g/dL (3.5-5.0); ALBUMIN/GLOBULIN RATIO 0.6 (0.8-2.0); ALKALINE PHOSPHATASE 91 IU/L (40-150); ANION GAP 24.3 mmol/L (8-16); BILIRUBIN,TOTAL 0.6 mg/dL (0.2-1.2); CALCIUM 7.2 mg/dL (8.4-10.2); CARBON DIOXIDE 10 mmol/L (22-29); CHLORIDE 111 mmol/L (98-107); CREATININE, SERUM 12.45 mg/dL (0.57-1.11); EST GLOMERULAR FILTRATION RATE 3 ML/MIN (>=60); GLUCOSE 173 mg/dL (74-118); SODIUM 140 mmol/L (136-145); TOTAL PROTEIN 6.7 g/dL (6.5-8.1)
[2024-02-06 06:14] LABS: BLOOD UREA NITROGEN 153 mg/dL (7-26); POTASSIUM 5.3 mmol/L (3.5-5.1)
[2024-02-06 10:29] LABS: INR 1.38; PROTHROMBIN TIME 17.7 seconds (11.9-14.5)
[2024-02-06] MEDS: EPOETIN ALFA-EPBX 10,000 UNIT/ML VIAL SC SCH (12:00)
[2024-02-06] MEDS ORDERED: SODIUM CHLORIDE 0.9% 250ML 250 ML ONE (12:58)
[2024-02-06] MEDS ORDERED: HEPARIN SOD (PORCINE) 1000 UNIT/ML SDV ONE (14:15)
[2024-02-06] MEDS ORDERED: SODIUM CHLORIDE 0.9% 1000ML 2,000 ML IV PRN (15:45)
[2024-02-06] MEDS ORDERED: MANNITOL 25% 12.5GM/50 ML VIAL IV PRN (15:45)
[2024-02-06] MEDS ORDERED: HEPARIN SOD (PORCINE) 1000 UNIT/ML SDV IV PRN (15:45)
[2024-02-07] VITALS (7 sets, daily range): BP systolic 128–151; BP diastolic 52–65; PULSE 66–82; RESP 16–17; TEMP 98–99.4; O2SAT 95–100
[2024-02-07 05:36] LABS: BASOPHILS % 0.1 % (0.0-1.0); EOSINOPHILS % 0.2 % (0.0-6.0); HEMATOCRIT 25.5 % (34.2-44.1); HEMOGLOBIN 8.3 g/dL (12.0-16.0); LYMPHOCYTES # (AUTO) 0.6 (1.0-3.2); LYMPHOCYTES % 4.6 % (18.0-39.1); MEAN CORPUSCULAR HGB CONC 32.5 g/dL (31-35); MEAN CORPUSCULAR VOLUME 92.1 fL (81-99); MONOCYTES % 7.2 % (4.4-11.3); NEUTROPHILS % 86.7 % (38.7-80.0); PLATELET COUNT 195 x10e3/uL (140-360); RED BLOOD COUNT 2.77 x10e6/uL (3.6-5.1); RED CELL DISTRIBUTION WIDTH 14.5 % (11.7-14.4); WHITE BLOOD COUNT 13.84 x10e3/uL (4.8-10.8)
[2024-02-07 06:04] LABS: ANION GAP 20.4 mmol/L (8-16); CALCIUM 7.2 mg/dL (8.4-10.2); CREATININE, SERUM 7.65 mg/dL (0.57-1.11); PHOSPHORUS 4.9 MG/DL (2.3-4.7)
[2024-02-07 06:07] LABS: POTASSIUM 3.4 mmol/L (3.5-5.1)
[2024-02-07 10:26] LABS: CREATININE,URINE RANDOM 143.27 mg/dL (47-110)
[2024-02-07 10:28] LABS: TOTAL PROTEIN, URINE 210.4 mg/dL (1-14)
[2024-02-07] MEDS: ONDANSETRON HCL INJ 2MG/ML 2ML 2 MG/ML VIAL IV PRN (22:16)
[2024-02-08] VITALS (7 sets, daily range): BP systolic 142–152; BP diastolic 54–63; PULSE 67–82; RESP 16–18; TEMP 98.1–99.3; O2SAT 93–97
[2024-02-08 05:19] LABS: HEPATITIS B SURFACE AG (P) Negative (Negative)
[2024-02-08 05:35] LABS: ANION GAP 14.7 mmol/L (8-16); CALCIUM 7.9 mg/dL (8.4-10.2); CREATININE, SERUM 4.03 mg/dL (0.57-1.11); POTASSIUM 3.7 mmol/L (3.5-5.1)
[2024-02-09 03:12] VITALS: BP 141/62; PULSE 70; RESP 18; TEMP 99.1; O2SAT 95
[2024-02-09 05:38] LABS: BASOPHILS # (AUTO) 0.1 (0.0-0.1); BASOPHILS % 0.6 % (0.0-1.0); EOSINOPHILS # (AUTO) 0.1 (0.0-0.4); EOSINOPHILS % 0.9 % (0.0-6.0); HEMATOCRIT 26.6 % (34.2-44.1); HEMOGLOBIN 8.5 g/dL (12.0-16.0); LYMPHOCYTES # (AUTO) 1.6 (1.0-3.2); LYMPHOCYTES % 12.4 % (18.0-39.1); MEAN CORPUSCULAR HEMOGLOBIN 30.5 pg (28-32); MEAN CORPUSCULAR VOLUME 95.3 fL (81-99); MONOCYTES # (AUTO) 1.4 (0.2-0.8); MONOCYTES % 10.7 % (4.4-11.3); NEUTROPHILS # (AUTO) 9.3 (2.1-6.9); NEUTROPHILS % 73.8 % (38.7-80.0); PLATELET COUNT 163 x10e3/uL (140-360); RED BLOOD COUNT 2.79 x10e6/uL (3.6-5.1); RED CELL DISTRIBUTION WIDTH 14.6 % (11.7-14.4); WHITE BLOOD COUNT 12.63 x10e3/uL (4.8-10.8)
[2024-02-09 06:01] LABS: ANION GAP 14.7 mmol/L (8-16); CALCIUM 7.2 mg/dL (8.4-10.2); CREATININE, SERUM 4.84 mg/dL (0.57-1.11); POTASSIUM 3.7 mmol/L (3.5-5.1)
[2024-02-09 08:29] VITALS: BP 152/56; PULSE 69; RESP 17; TEMP 98.4; O2SAT 100
[2024-02-09 11:41] VITALS: BP 161/61; PULSE 74; RESP 17; TEMP 98.3; O2SAT 98
[2024-02-09] MEDS ORDERED: FENTANYL CITRATE/PF 100MCG/2 ML INJ ONE (15:33)
[2024-02-09] MEDS ORDERED: MIDAZOLAM HCL 2 MG/2 ML VIAL ONE (15:33)
[2024-02-09] MEDS ORDERED: SODIUM CHLORIDE 0.9% 250ML 250 ML ONE (15:34)
[2024-02-09] MEDS ORDERED: HEPARIN SOD (PORCINE) 1000 UNIT/ML SDV ONE (15:38)
[2024-02-09] MEDS: AMLODIPINE BESYLATE 5 MG TAB PO ONE (18:22)
[2024-02-09 19:15] VITALS: BP 158/61; PULSE 69; RESP 18; TEMP 98.9; O2SAT 97
[2024-02-09 22:59] VITALS: BP 158/61; PULSE 69; RESP 18; TEMP 98.9; O2SAT 97
[2024-02-09 23:00] VITALS: BP 141/57; PULSE 73; RESP 18; TEMP 98.6; O2SAT 96
[2024-02-10 03:03] VITALS: BP 132/53; PULSE 61; RESP 18; TEMP 99.1; O2SAT 98
[2024-02-10 06:35] LABS: ANION GAP 15.8 mmol/L (8-16); CREATININE, SERUM 5.95 mg/dL (0.57-1.11); POTASSIUM 3.8 mmol/L (3.5-5.1)
[2024-02-10 08:21] VITALS: BP 145/66; PULSE 67; RESP 20; TEMP 98; O2SAT 99
[2024-02-10] MEDS: AMLODIPINE BESYLATE 5 MG TAB PO SCH (09:00)
[2024-02-10 11:50] VITALS: BP 149/69; PULSE 68; RESP 18; TEMP 98.2; O2SAT 94
[2024-02-10 16:36] VITALS: BP 156/57; PULSE 81; RESP 19; TEMP 97.8; O2SAT 98
[2024-02-10 19:29] VITALS: BP 156/58; PULSE 73; RESP 18; TEMP 99.7; O2SAT 98
[2024-02-10 23:13] VITALS: BP 148/57; PULSE 66; RESP 18; TEMP 99.9; O2SAT 99
[2024-02-11] VITALS (7 sets, daily range): BP systolic 139–157; BP diastolic 53–65; PULSE 68–81; RESP 16–18; TEMP 98.2–99.9; O2SAT 99–100
[2024-02-12] VITALS (8 sets, daily range): BP systolic 149–161; BP diastolic 58–63; PULSE 65–77; RESP 16–18; TEMP 97.8–99.1; O2SAT 97–100
[2024-02-13] VITALS (7 sets, daily range): BP systolic 146–166; BP diastolic 60–69; PULSE 69–78; RESP 16–18; TEMP 97.8–99.1; O2SAT 97–100
[2024-02-13 06:03] LABS: BASOPHILS # (AUTO) 0.1 (0.0-0.1); BASOPHILS % 0.7 % (0.0-1.0); EOSINOPHILS # (AUTO) 0.2 (0.0-0.4); EOSINOPHILS % 2.2 % (0.0-6.0); HEMATOCRIT 26.4 % (34.2-44.1); LYMPHOCYTES # (AUTO) 1.6 (1.0-3.2); LYMPHOCYTES % 17.5 % (18.0-39.1); MEAN CORPUSCULAR HEMOGLOBIN 29.3 pg (28-32); MEAN CORPUSCULAR HGB CONC 30.3 g/dL (31-35); MEAN CORPUSCULAR VOLUME 96.7 fL (81-99); MONOCYTES # (AUTO) 1.2 (0.2-0.8); MONOCYTES % 12.8 % (4.4-11.3); NEUTROPHILS % 65.3 % (38.7-80.0); PLATELET COUNT 157 x10e3/uL (140-360); RED BLOOD COUNT 2.73 x10e6/uL (3.6-5.1); RED CELL DISTRIBUTION WIDTH 13.9 % (11.7-14.4); WHITE BLOOD COUNT 9.19 x10e3/uL (4.8-10.8)
[2024-02-13 06:49] LABS: ANION GAP 13.8 mmol/L (8-16); CALCIUM 7.3 mg/dL (8.4-10.2); CREATININE, SERUM 5.18 mg/dL (0.57-1.11); POTASSIUM 3.8 mmol/L (3.5-5.1)
[2024-02-13] MEDS ORDERED: PANTOPRAZOLE SO40 MG PO (09:55)
[2024-02-13] MEDS ORDERED: CIPRO500 MG PO (09:55)
[2024-02-13] MEDS ORDERED: ONDANSETRON HCL 4 MG ORAL DISINTEGRATING TAB PO PRN (11:30)
== END 2024-02-13 17:02 | disposition home or self-care (01) | DRG 682 ==
LOC: ER 18:55 → ERHOLD 21:03 → MED/SURG2 22:26
PROVIDERS: ADMIT Internal Medicine; ATTEND Internal Medicine
PROC: 30233N1 Transfusion of Nonautologous Red Blood Cells into Peripheral Vein, Percutaneous Approach (ICD-10-PCS; 2024-02-05)
PROC: 02HV33Z Insertion of Infusion Device into Superior Vena Cava, Percutaneous Approach (ICD-10-PCS; principal; 2024-02-06)
PROC: 5A1D70Z Performance of Urinary Filtration, Intermittent, Less than 6 Hours Per Day (ICD-10-PCS; 2024-02-06)
DX: I12.0 Hypertensive chronic kidney disease with stage 5 chronic kidney disease or end stage renal disease (principal); N18.6 End stage renal disease; N39.0 Urinary tract infection, site not specified; Z16.12 Extended spectrum beta lactamase (ESBL) resistance; E44.0 Moderate protein-calorie malnutrition; E87.20 Acidosis, unspecified; E11.22 Type 2 diabetes mellitus with diabetic chronic kidney disease; D63.1 Anemia in chronic kidney disease; B96.20 Unspecified Escherichia coli [E. coli] as the cause of diseases classified elsewhere; Z68.22 Body mass index [BMI] 22.0-22.9, adult; E87.70 Fluid overload, unspecified; Z99.2 Dependence on renal dialysis; Z11.52 Encounter for screening for COVID-19; E03.9 Hypothyroidism, unspecified; Z79.4 Long term (current) use of insulin; Z86.16 Personal history of COVID-19
CPT/HCPCS: 36415; 36556; 36558; 36600; 71045; 74470; 76770; 76937; 77001; 80048; 80053; 81001; 82550; 82570; 82805; 82948; 83540; 83880; 84100; 84156; 84466; 84484; 85025; 85610; 86705; 86706; 86850; 86900; 86920; 87086; 87186; 87340; 93005; 94799; 99152; 99252; 99284; C1752; C1769; C1892; J0690; J0696; J1644; J1940; J2150; J2185; J2250; J2405; J7030; J7050; J7799; P9016; U0002